=== PATIENT | female | born 1935 | race Asian ===

== ENCOUNTER 2017-06-11 04:51 | Inpatient (IN) | payer MEDICARE, MEDICAID ==
[2017-06-11] VITALS (7 sets, daily range): BP systolic 112–135; BP diastolic 66–86
[~2017-06-11] VITALS: Ht 152.4 cm; Wt 65.3 kg
--- NOTE | 2017-06-11 04:58 | Emergency Room Report ---
History of Present Illness General Chief Complaint: Dyspnea/Respdistress Source: Patient, Medical Record Present Illness HPI This is an 82-year-old [place] female [facility]. She has a past medical history diabetes, CAD, pacemaker, recent hip fracture. She presents acutely short of breath. Onset this evening. No nausea no vomiting. No fever chills. No exertional component. Allergies: Coded Allergies: No Known Allergies (Unverified , 06/11/17) Patient History Past Medical History: see triage record, old chart reviewed, DM, HTN Past Surgical History: other Pertinent Family History: none Social History: Denies: smoking Last Menstrual Period: n/a Now: No Immunizations: other Reviewed Nursing Documentation: PMH: Agreed, PSxH: Agreed Nursing Documentation-PMH Hx Diabetes: Yes - dm2 Hx Neurological Problems: No - left femur fx Review of Systems Eye: Denies: eye pain, blurred vision ENT: Denies: ear pain, nose congestion, throat swelling Respiratory: Reports: shortness of breath, Denies: cough Cardiovascular: Denies: chest pain, palpitations Gastrointestinal: Denies: abdominal pain, diarrhea, nausea, vomiting Musculoskeletal: Denies: back pain, joint pain Skin: Denies: rash Neurological: Denies: headache, numbness Endocrine: Denies: increased thirst, increased urine Hematologic/Lymphatic: Denies: easy bruising All Other Systems: negative except mentioned in HPI Physical Exam Vital Signs Date Time Temp Pulse Resp B/P (MAP) Pulse Ox O2 Delivery O2 Flow Rate FiO2 06/11/17 04:41 97.3 64 16 124/86 97 Nasal Cannula 2.0 vitals unremarkable Sp02 EP Interpretation: reviewed, normal General Appearance: well appearing, no apparent distress, alert Head: normocephalic, atraumatic Eyes: bilateral eye PERRL, bilateral eye EOMI ENT: hearing grossly normal, normal pharynx Neck: full range of motion, supple, no meningismus Respiratory: chest non-tender, lungs clear, normal breath sounds Cardiovascular #1: regular rate, rhythm, no murmur Gastrointestinal: normal bowel sounds, non tender, no mass, no organomegaly, no bruit, non-distended Musculoskeletal: back normal, normal range of motion Psychiatric: mood/affect normal Skin: warm/dry Medical Decision Making Diagnostic Impression: Primary Impression: Acute exacerbation of CHF (congestive heart failure) Qualified Codes: I50.9 - Heart failure, unspecified ER Course This patient presents with shortness of breath. Blood work show mild CHF. Because of her recent hip surgery, will get CT scan to rule out PE. Patient felt better now. She received Lasix here. Will admit for monitoring. I contacted Dr. Daly for admission. I signout the ct scan to Dr. Warner. Lab Results Impression labs with elevated BNP and Ddimer. EKG Diagnostic Results Rate: normal, other - Paced Rhythm: NSR ST Segments: no acute changes Rhythm Strip Diag. Results Rhythm Strip Time: 04:57 EP Interpretation: yes Rate: 60 Rhythm: NSR, no PVC's, other - Paced rhythm Chest X-Ray Diagnostic Results Chest X-Ray Diagnostic Results : Chest X-Ray Ordered: Yes # of Views/Limited/Complete: 1 View Indication: Shortness of Breath EP Interpretation: Yes Interpretation: no consolidation, no effusion, no pneumothorax, other - Cardiomegaly with vascular congestion Last Vital Signs Date Time Temp Pulse Resp B/P (MAP) Pulse Ox O2 Delivery O2 Flow Rate FiO2 06/11/17 04:41 97.3 64 16 124/86 97 Nasal Cannula 2.0 Status: improved Disposition: ADMITTED INPATIENT Condition: Serious DARI ALVAREZ M.D. Jun 11, 2017 04:58
[2017-06-11] MEDS ORDERED: CARDIZEM60 MG ORAL (05:02)
[2017-06-11] MEDS ORDERED: METOPROLOL TAR100 M1 ORAL (05:02)
[2017-06-11] MEDS ORDERED: DOCUSATE SODIU100 MG ORAL (05:02)
[2017-06-11] MEDS ORDERED: AMIODARONE HCL400 M1 ORAL (05:02)
[2017-06-11] MEDS ORDERED: LATANOPROST2.5 ML BOTH EYES (05:02)
[2017-06-11] MEDS ORDERED: ATORVASTATIN CA20 MG ORAL (05:02)
[2017-06-11] MEDS ORDERED: ASPIRIN EC81 MG ORAL (05:02)
[2017-06-11] MEDS ORDERED: NORCO 5-325 TA1 EACH ORAL (05:02)
[2017-06-11] MEDS ORDERED: DONEPEZIL HCL5 M2 ORAL (05:02)
[2017-06-11] MEDS ORDERED: ACETAMINOPHEN325 M1 ORAL (05:02)
[2017-06-11] MEDS ORDERED: ALENDRONATE SOD70 MG ORAL (05:02)
[2017-06-11 05:25] LABS: BASOPHILS % (AUTO) 0.5 % (0.0-2.0); EOSINOPHILS % (AUTO) 0.4 % (0.0-3.0); LYMPHOCYTES % (AUTO) 15.1 % (20.0-45.0); MEAN CORPUSCULAR HEMOGLOBIN 33.2 PG (27.0-31.0); MEAN CORPUSCULAR VOLUME 95 FL (80-99); MEAN PLATELET VOLUME 5.6 FL (6.5-10.1); MONOCYTES % (AUTO) 6.9 % (1.0-10.0); NEUTROPHILS % (AUTO) 77.1 % (45.0-75.0); PLATELET COUNT 296 K/UL (150-450); RED BLOOD COUNT 4.65 M/UL (4.20-5.40); RED CELL DISTRIBUTION WIDTH 12.5 % (11.6-14.8); WHITE BLOOD COUNT 7.5 K/UL (4.8-10.8)
[2017-06-11 05:48] LABS: ALANINE AMINOTRANSFERASE 98 U/L (12-78); ALBUMIN/GLOBULIN RATIO 0.8 (1.0-2.7); ANION GAP 7 mmol/L (5-15); ASPARTATE AMINO TRANSFERASE 57 U/L (15-37); CALCIUM 8.8 MG/DL (8.5-10.1); CARBON DIOXIDE 29 MMOL/L (21-32); CHLORIDE 105 MMOL/L (98-107); CKMB 0.5 NG/ML (0.0-3.6); CREATININE 0.6 MG/DL (0.55-1.30); SODIUM 141 MMOL/L (136-145)
[2017-06-11] MEDS ORDERED: Miralax 17gm pkt ORAL PRN (07:45)
[2017-06-11] MEDS ORDERED: Albuterol/Ipratropium 3ml neb HHN PRN (07:45)
--- NOTE | 2017-06-11 08:41 | Diagnostic Imaging Report ---
EXAM: CTA Chest (Pulmonary Angiogram) HISTORY: Acute shortness of breath with concern for pulmonary embolism. TECHNIQUE: Helical CT was performed from the lung apices through the lung base following the administration of contrast. Axial, coronal and sagittal reformatted images were created at the CT console. CT DI: 12 DLP: 492 COMPARISONS: No prior study is available for comparison. FINDINGS: Vascular Findings: There is adequate opacification of the pulmonary arteries to the sub-segmental level. There is no evidence of filling defect in the pulmonary arteries to suggest acute or chronic pulmonary embolus. Non-vascular Findings: Left chest cardiac conduction device is noted. There is moderate cardiomegaly and atherosclerotic calcification of the coronary arteries. Trace bilateral pleural effusions are noted, greater on the right with ill-defined right basilar density suspicious for atelectasis or infiltrate. The partially imaged thyroid gland is enlarged and diffusely heterogeneous, with a large, 3 cm hypodense nodule in the right thyroid lobe extending to the isthmus with dystrophic calcifications. Mild thickening of the partially imaged right adrenal gland is noted. Moderate multilevel thoracic spondylosis is noted. IMPRESSION: 1. No evidence of acute or chronic pulmonary embolus. 2. Cardiomegaly and atherosclerotic vascular disease. Trace bilateral effusions and right basilar densities which may represent atelectasis or infiltrate. Left chest cardiac conduction device. 3. Enlarged right thyroid lobe with a large, 3 cm hypodense nodule and dystrophic calcifications. Correlate with thyroid function tests and consider thyroid ultrasound. Tissue sampling may be considered. 4. Mild thickening of the right adrenal gland.
[2017-06-11] MEDS: Heparin 5000 units/ml inj SUBQ SCH ×2 (09:38→20:40)
[2017-06-11] MEDS: Amiodarone 200mg tab ORAL SCH (09:39)
[2017-06-11] MEDS: Donepezil 5mg Tab ORAL SCH (09:39)
--- NOTE | 2017-06-11 10:27 | Diagnostic Imaging Report ---
Clinical history: Acute shortness of breath. Technique: Portable AP chest radiograph was obtained. Comparison: None Findings: Lung volumes are low with probable basilar atelectasis. There is mild-moderate cardiomegaly and scattered interstitial and perihilar densities suspicious for mild pulmonary edema with trace bilateral pleural effusions. Atherosclerotic calcification of the thoracic aorta is noted. Left chest cardiac conduction device is identified. Mild degenerative changes of the visualized spine and right shoulder joint noted. Impression: Cardiomegaly and mild interstitial edema with trace bilateral pleural effusions. Low lung volumes with probable basilar atelectasis. Superimposed pneumonia is not excluded.
[2017-06-11] MEDS: dilTIAZem HCl 60mg tab ORAL SCH ×3 (12:24→23:31)
[2017-06-11] MEDS: NovoLOG Insulin Flexpen SUBQ SCH ×2 (17:05→20:41)
--- NOTE | 2017-06-11 18:25 | Cardiology Report ---
APPROVED REPORT EXAM: Two-dimensional and M-mode echocardiogram with Doppler and color Doppler. INDICATION Left ventricular function M-Mode DIMENSIONS IVSd0.8 (0.7-1.1cm)Left Atrium (MM)4.6 (1.6-4.0cm) LVDd5.3 (3.5-5.6cm)Aortic Root3.4 (2.0-3.7cm) PWd1.1 (0.7-1.1cm)Aortic Cusp Exc.1.9 (1.5-2.0cm) LVDs4.1 (2.5-4.0cm) PWs0.8 cm Normal left ventricular chamber size, systolic function and wall motion except hypokinesis of dist inferior and mid to distal anterior septum (may be related to pacing). Left ventricular ejection fraction estimated to be 45-50%. No evidence of left ventricular hypertrophy. No evidence of pericardial or pleural effusion. Mild bi-atrial enlargement by 2D. Focal aortic valve sclerosis with adequate cusp excursion. Thickened mitral valve leaflets with normal excursion. Mild mitral annulus and aortic root calcification. Pulmonic valve not well visualized. Normal tricuspid valve structure. IVC dilated at 2.5 cm and collapsible with respiration. RA pressure of 10mmHg. Probable pacemaker wire present in the right side chambers. A color flow and spectral Doppler study was performed and revealed: Mild aortic regurgitation. Moderate mitral regurgitation. Normal mitral diastolic function. Trace tricuspid regurgitation. Tricuspid systolic velocities suggests peak right ventricular systolic pressure of 36mmHg Consistent with mild pulmonary hypertension. Pulmonic regurgitation present.
--- NOTE | 2017-06-11 18:32 | Cardiology Report ---
APPROVED REPORT EKG Measurement Heart [id number] atrial pacing vent sensing
[2017-06-11] MEDS: Atorvastatin 20mg tab ORAL SCH (20:39)
[2017-06-12 00:14] VITALS: BP 113/66
[2017-06-12 04:22] VITALS: BP 131/68
[2017-06-12] MEDS: NovoLOG Insulin Flexpen SUBQ SCH ×4 (06:12→20:39)
[2017-06-12] MEDS: dilTIAZem HCl 60mg tab ORAL SCH ×3 (06:12→17:48)
[2017-06-12 07:59] VITALS: BP 122/68
[2017-06-12] MEDS: Amiodarone 200mg tab ORAL SCH (08:10)
[2017-06-12] MEDS: Donepezil 5mg Tab ORAL SCH (08:10)
[2017-06-12] MEDS: Heparin 5000 units/ml inj SUBQ SCH ×2 (08:12→20:39)
[2017-06-12 09:03] LABS: BASOPHILS % (AUTO) 0.6 % (0.0-2.0); MEAN CORPUSCULAR HEMOGLOBIN 31.7 PG (27.0-31.0); MEAN CORPUSCULAR HGB CONC 33.3 G/DL (32.0-36.0); MEAN CORPUSCULAR VOLUME 95 FL (80-99); MEAN PLATELET VOLUME 5.3 FL (6.5-10.1); MONOCYTES % (AUTO) 9.2 % (1.0-10.0); NEUTROPHILS % (AUTO) 67.2 % (45.0-75.0); PLATELET COUNT 284 K/UL (150-450); RED BLOOD COUNT 4.88 M/UL (4.20-5.40); RED CELL DISTRIBUTION WIDTH 12.5 % (11.6-14.8); WHITE BLOOD COUNT 6.7 K/UL (4.8-10.8)
[2017-06-12 09:30] LABS: ANION GAP 11 mmol/L (5-15); CALCIUM 8.9 MG/DL (8.5-10.1); CARBON DIOXIDE 28 MMOL/L (21-32); CHLORIDE 102 MMOL/L (98-107); CREATININE 0.7 MG/DL (0.55-1.30); PHOSPHORUS 4.3 MG/DL (2.5-4.9); POTASSIUM 3.5 MMOL/L (3.5-5.1); SODIUM 141 MMOL/L (136-145)
[2017-06-12 09:40] LABS: ALANINE AMINOTRANSFERASE 117 U/L (12-78); ALBUMIN/GLOBULIN RATIO 0.8 (1.0-2.7); ANION GAP 11 mmol/L (5-15); ASPARTATE AMINO TRANSFERASE 103 U/L (15-37); CALCIUM 8.7 MG/DL (8.5-10.1); CARBON DIOXIDE 28 MMOL/L (21-32); CHLORIDE 102 MMOL/L (98-107); CREATININE 0.8 MG/DL (0.55-1.30); SODIUM 141 MMOL/L (136-145); TOTAL PROTEIN 7.2 G/DL (6.4-8.2)
--- NOTE | 2017-06-12 11:03 | Diagnostic Imaging Report ---
Indication: DYSPNEA Technique: One view of the chest Comparison: 06/11/2017 Findings: Left chest pacemaker is again demonstrated. The heart is mildly enlarged. Mild generalized interstitial prominence persists, stable. Findings are unchanged Impression: Unchanged, over one day, findings as above.
--- NOTE | 2017-06-12 11:19 | Diagnostic Imaging Report ---
APPROVED REPORT CPT Code: 21271 Present Symptoms Lower Extremity Pain: Bilateral BILATERAL: Imaging reveals a patent deep venous system bilaterally. There is no evidence of thrombus within the femoral, popliteal or tibial segments. The greater saphenous veins are also within normal limits. Doppler indicates normal spontaneous flow within these segments.
[2017-06-12 11:43] VITALS: BP 109/69
--- NOTE | 2017-06-12 12:17 | History and Physical ---
History of Present Illness General Date patient seen: Jun 11, 2017 Reason for Hospitalization: Dyspnea/Respdistress Present Illness HPI 82-year-old Yoruba female with hx recent hip fracture, snf resident, diabetes, CAD, pacemaker presented to [facility] with CC of acute onset of short of breath. Onset this evening. No nausea no vomiting. No fever chills. No exertional component. Since she had a hip fracture and was on high risk for PE , she got a CT angio in ER which was negative. she received lasix which improved her symptoms. She is admitted for further work up. Allergies: Coded Allergies: No Known Allergies (Unverified , 06/11/17) Medication History Scheduled Alendronate Sodium* (Fosamax*), 70 MG ORAL ONCE A WEEK, (Reported) Amiodarone Hcl* (Amiodarone Hcl*), 400 MG ORAL EVERY 12 HOURS, (Reported) Aspirin Ec* (Aspirin Ec*), 81 MG ORAL DAILY, (Reported) Atorvastatin Calcium* (Atorvastatin Calcium*), 20 MG ORAL BEDTIME, (Reported) Diltiazem Hcl* (Cardizem*), 60 MG ORAL EVERY 6 HOURS, (Reported) Docusate Sodium* (Docusate Sodium*), 100 MG ORAL TWICE A DAY, (Reported) Donepezil Hcl* (Donepezil Hcl*), 5 MG ORAL DAILY, (Reported) Latanoprost* (Xalatan*), 1 DROP BOTH EYES BEDTIME, (Reported) Metoprolol Tartrate* (Metoprolol Tartrate*), 100 MG ORAL EVERY 12 HOURS, ( Reported) Scheduled PRN Acetaminophen* (Acetaminophen 325MG Tablet*), 650 MG ORAL Q4H PRN for Mild Pain/ Temp > 100.5, (Reported) Hydrocodone Bit/Acetaminophen 5-325* (Rosamond 5-325*), 1 TAB ORAL Q4H PRN for Moderate Breakthru Pain (5-7), (Reported) Patient History Healthcare decision maker REUBEN BANKS Resuscitation status Full Code Advanced Directive on File Past Medical/Surgical History Past Medical/Surgical History: (1) CHF (congestive heart failure) (2) Arrhythmia (3) Pacemaker (4) Diabetes mellitus Review of Systems Constitutional: Reports: no symptoms Eye: Reports: no symptoms All Other Systems: negative except mentioned in HPI Physical Exam General Appearance: WD/WN Lines, tubes and drains: peripheral HEENT: normocephalic, atraumatic Neck: non-tender, normal alignment Respiratory/Chest: chest wall non-tender, lungs clear Breasts: no masses Abdomen: normal bowel sounds, non tender Genitourinary/Rectal: normal genital exam Extremities: normal range of motion Last 24 Hour Vital Signs Date Time Temp Pulse Resp B/P (MAP) Pulse Ox O2 Delivery O2 Flow Rate FiO2 06/12/17 11:43 97.1 64 18 109/69 95 Room Air 06/12/17 11:34 65 129/74 06/12/17 08:00 60 06/12/17 07:59 96.6 60 18 122/68 94 Room Air 06/12/17 06:12 60 131/68 06/12/17 04:22 97.0 60 20 131/68 96 Nasal Cannula 2.0 06/12/17 04:00 60 06/12/17 00:14 97.7 60 20 113/66 95 Nasal Cannula 2.0 06/12/17 00:00 61 06/11/17 23:31 61 132/73 06/11/17 20:03 97.7 61 20 132/73 96 Nasal Cannula 2.0 06/11/17 20:00 60 06/11/17 17:08 62 135/78 06/11/17 16:00 97.8 60 20 135/78 97 Nasal Cannula 2.0 06/11/17 16:00 62 06/11/17 13:45 60 06/11/17 13:40 97.0 67 20 112/77 96 Nasal Cannula 2.0 06/11/17 13:25 97.3 60 20 130/81 98 Nasal Cannula 2.0 06/11/17 13:20 60 20 130/81 98 Nasal Cannula 2.0 06/11/17 12:24 60 128/66 Intake and Output 06/12/17 06/13/17 19:00 07:00 Intake Total 240 ml Output Total 500 ml Balance -260 ml Intake Oral 240 ml Output Urine Total 500 ml Laboratory Tests Test 06/11/17 13:00 06/12/17 08:05 Troponin I 0.027 ng/mL (0.000-0.056) 0.019 ng/mL (0.000-0.056) White Blood Count 6.7 K/UL (4.8-10.8) Red Blood Count 4.88 M/UL (4.20-5.40) Hemoglobin 15.5 G/DL (12.0-16.0) Hematocrit 46.6 % (37.0-47.0) Mean Corpuscular Volume 95 FL (80-99) Mean Corpuscular Hemoglobin 31.7 PG (27.0-31.0) H Mean Corpuscular Hemoglobin Concent 33.3 G/DL (32.0-36.0) Red Cell Distribution Width 12.5 % (11.6-14.8) Platelet Count 284 K/UL (150-450) Mean Platelet Volume 5.3 FL (6.5-10.1) L Neutrophils (%) (Auto) 67.2 % (45.0-75.0) Lymphocytes (%) (Auto) 21.0 % (20.0-45.0) Monocytes (%) (Auto) 9.2 % (1.0-10.0) Eosinophils (%) (Auto) 2.0 % (0.0-3.0) Basophils (%) (Auto) 0.6 % (0.0-2.0) Sodium Level 141 MMOL/L (136-145) Potassium Level 3.0 MMOL/L (3.5-5.1) L Chloride Level 102 MMOL/L (98-107) Carbon Dioxide Level 28 MMOL/L (21-32) Anion Gap 11 mmol/L (5-15) Blood Urea Nitrogen 13 mg/dL (7-18) Creatinine 0.8 MG/DL (0.55-1.30) Estimat Glomerular Filtration Rate mL/min (>60) Glucose Level 178 MG/DL (74-106) H Calcium Level 8.7 MG/DL (8.5-10.1) Phosphorus Level 4.3 MG/DL (2.5-4.9) Total Bilirubin 0.8 MG/DL (0.2-1.0) Aspartate Amino Transf (AST/SGOT) 103 U/L (15-37) H Alanine Aminotransferase (ALT/SGPT) 117 U/L (12-78) H Alkaline Phosphatase 126 U/L (46-116) H Pro-B-Type Natriuretic Peptide 522 pg/mL (0-125) H Total Protein 7.2 G/DL (6.4-8.2) Albumin 3.3 G/DL (3.4-5.0) L Globulin 3.9 g/dL Albumin/Globulin Ratio 0.8 (1.0-2.7) L Height (Feet): 5 Height (Inches): 0.00 Weight (Pounds): 145 Medications Current Medications Medications (Trade) Dose Ordered Sig/Donte Route PRN Reason Start Time Stop Time Status Last Admin Dose Admin Acetaminophen (Tylenol) 650 mg Q4H PRN ORAL T>100.5 06/11/17 07:45 07/11/17 07:44 Albuterol/ Ipratropium (Albuterol/ Ipratropium) 3 ml Q4H PRN HHN Shortness of Breath 06/11/17 07:45 06/16/17 07:44 Amiodarone HCl (Cordarone) 200 mg DAILY ORAL 06/11/17 09:00 07/11/17 08:59 06/12/17 08:10 Atorvastatin Calcium (Lipitor) 20 mg BEDTIME ORAL 06/11/17 21:00 07/11/17 20:59 06/11/17 20:39 Dextrose (Dextrose 50%) STAT PRN IV Hypoglycemia 06/11/17 07:45 07/11/17 07:44 Dextrose (Dextrose 50%) STAT PRN IV Hypoglycemia 06/11/17 16:30 07/11/17 16:29 Diltiazem HCl (Cardizem) 60 mg EVERY 6 HOURS ORAL 06/11/17 12:00 07/11/17 11:59 06/12/17 11:34 Donepezil HCl (Aricept) 5 mg DAILY ORAL 06/11/17 09:00 07/11/17 08:59 06/12/17 08:10 Furosemide (Lasix) 40 mg EVERY 8 HOURS IV 06/11/17 14:00 07/11/17 13:59 06/12/17 06:12 Heparin Sodium (Porcine) (Heparin 5000 units/ml) 5,000 units EVERY 12 HOURS SUBQ 06/11/17 09:00 07/11/17 08:59 06/12/17 08:12 Insulin Aspart (NovoLOG) BEFORE MEALS AND HS SUBQ 06/11/17 16:30 07/11/17 16:29 06/11/17 20:41 Ondansetron HCl (Zofran) 4 mg Q6H PRN IVP Nausea & Vomiting 06/11/17 07:45 07/11/17 07:44 Polyethylene Glycol (Miralax) 17 gm DAILYPRN PRN ORAL Constipation 06/11/17 07:45 07/11/17 07:44 Temazepam (Restoril) 15 mg HSPRN PRN ORAL Insomnia 06/11/17 21:00 06/18/17 20:59 Assessment/Plan Problem List: (1) Acute respiratory failure ICD Codes: J96.00 - Acute respiratory failure, unspecified whether with hypoxia or hypercapnia SNOMED: 55499711 (2) Acute exacerbation of CHF (congestive heart failure) ICD Codes: I50.9 - Heart failure, unspecified SNOMED: 16154601 Qualifiers: Qualified Codes: I50.9 - Heart failure, unspecified (3) Arrhythmia ICD Codes: I49.9 - Cardiac arrhythmia, unspecified SNOMED: 021300593 (4) CHF (congestive heart failure) ICD Codes: I50.9 - Heart failure, unspecified SNOMED: 30465425 (5) Diabetes mellitus ICD Codes: E11.9 - Type 2 diabetes mellitus without complications SNOMED: 04594485 (6) Pacemaker ICD Codes: Z95.0 - Presence of cardiac pacemaker SNOMED: 985238439, 844038118 Assessment/Plan diuretics echo cardiology evaluation sliding scale, insulin coverage. RITA CORDERO Jun 12, 2017 12:17
--- NOTE | 2017-06-12 12:19 | Pulmonology Progress Note ---
Assessment/Plan Problems: (1) Acute respiratory failure (2) Acute exacerbation of CHF (congestive heart failure) (3) Arrhythmia (4) CHF (congestive heart failure) (5) Diabetes mellitus (6) Pacemaker Assessment/Plan K supplement echo reviewed optimized cardiac meds continue diuretics Subjective ROS Limited/Unobtainable: No Constitutional: Reports: no symptoms HEENT: Repors: no symptoms Allergies: Coded Allergies: No Known Allergies (Unverified , 06/11/17) Objective Last 24 Hour Vital Signs Date Time Temp Pulse Resp B/P (MAP) Pulse Ox O2 Delivery O2 Flow Rate FiO2 06/12/17 11:43 97.1 64 18 109/69 95 Room Air 06/12/17 11:34 65 129/74 06/12/17 08:00 60 06/12/17 07:59 96.6 60 18 122/68 94 Room Air 06/12/17 06:12 60 131/68 06/12/17 04:22 97.0 60 20 131/68 96 Nasal Cannula 2.0 06/12/17 04:00 60 06/12/17 00:14 97.7 60 20 113/66 95 Nasal Cannula 2.0 06/12/17 00:00 61 06/11/17 23:31 61 132/73 06/11/17 20:03 97.7 61 20 132/73 96 Nasal Cannula 2.0 06/11/17 20:00 60 06/11/17 17:08 62 135/78 06/11/17 16:00 97.8 60 20 135/78 97 Nasal Cannula 2.0 06/11/17 16:00 62 06/11/17 13:45 60 06/11/17 13:40 97.0 67 20 112/77 96 Nasal Cannula 2.0 06/11/17 13:25 97.3 60 20 130/81 98 Nasal Cannula 2.0 06/11/17 13:20 60 20 130/81 98 Nasal Cannula 2.0 06/11/17 12:24 60 128/66 Intake and Output 06/12/17 06/13/17 19:00 07:00 Intake Total 240 ml Output Total 500 ml Balance -260 ml Intake Oral 240 ml Output Urine Total 500 ml General Appearance: WD/WN HEENT: normocephalic, atraumatic Respiratory/Chest: chest wall non-tender, lungs clear Breasts: no masses Cardiovascular: normal peripheral pulses Abdomen: normal bowel sounds, soft, non tender Genitourinary: normal external genitalia Extremities: no cyanosis 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 Lymphatic: no neck adenopathy Laboratory Tests 06/11/17 13:00: Troponin I 0.027 06/12/17 08:05: Troponin I 0.019, White Blood Count 6.7, Red Blood Count 4.88, Hemoglobin 15.5, Hematocrit 46.6, Mean Corpuscular Volume 95, Mean Corpuscular Hemoglobin 31.7H, Mean Corpuscular Hemoglobin Concent 33.3, Red Cell Distribution Width 12.5, Platelet Count 284, Mean Platelet Volume 5.3L, Neutrophils (%) (Auto) 67.2, Lymphocytes (%) (Auto) 21.0, Monocytes (%) (Auto) 9.2, Eosinophils (%) (Auto) 2.0, Basophils (%) (Auto) 0.6, Sodium Level 141, Potassium Level 3.0L, Chloride Level 102, Carbon Dioxide Level 28, Anion Gap 11, Blood Urea Nitrogen 13, Creatinine 0.8, Estimat Glomerular Filtration Rate , Glucose Level 178H, Calcium Level 8.7, Phosphorus Level 4.3, Total Bilirubin 0.8, Aspartate Amino Transf (AST/SGOT) 103H, Alanine Aminotransferase (ALT/SGPT) 117H, Alkaline Phosphatase 126H, Pro-B-Type Natriuretic Peptide 522H, Total Protein 7.2, Albumin 3.3L, Globulin 3.9, Albumin/Globulin Ratio 0.8L Current Medications Medications (Trade) Dose Ordered Sig/Donte Route PRN Reason Start Time Stop Time Status Last Admin Dose Admin Acetaminophen (Tylenol) 650 mg Q4H PRN ORAL T>100.5 06/11/17 07:45 07/11/17 07:44 Albuterol/ Ipratropium (Albuterol/ Ipratropium) 3 ml Q4H PRN HHN Shortness of Breath 06/11/17 07:45 06/16/17 07:44 Amiodarone HCl (Cordarone) 200 mg DAILY ORAL 06/11/17 09:00 07/11/17 08:59 06/12/17 08:10 Atorvastatin Calcium (Lipitor) 20 mg BEDTIME ORAL 06/11/17 21:00 07/11/17 20:59 06/11/17 20:39 Dextrose (Dextrose 50%) STAT PRN IV Hypoglycemia 06/11/17 07:45 07/11/17 07:44 Dextrose (Dextrose 50%) STAT PRN IV Hypoglycemia 06/11/17 16:30 07/11/17 16:29 Diltiazem HCl (Cardizem) 60 mg EVERY 6 HOURS ORAL 06/11/17 12:00 07/11/17 11:59 06/12/17 11:34 Donepezil HCl (Aricept) 5 mg DAILY ORAL 06/11/17 09:00 07/11/17 08:59 06/12/17 08:10 Furosemide (Lasix) 40 mg EVERY 8 HOURS IV 06/11/17 14:00 07/11/17 13:59 06/12/17 06:12 Heparin Sodium (Porcine) (Heparin 5000 units/ml) 5,000 units EVERY 12 HOURS SUBQ 06/11/17 09:00 07/11/17 08:59 06/12/17 08:12 Insulin Aspart (NovoLOG) BEFORE MEALS AND HS SUBQ 06/11/17 16:30 07/11/17 16:29 06/11/17 20:41 Ondansetron HCl (Zofran) 4 mg Q6H PRN IVP Nausea & Vomiting 06/11/17 07:45 07/11/17 07:44 Polyethylene Glycol (Miralax) 17 gm DAILYPRN PRN ORAL Constipation 06/11/17 07:45 07/11/17 07:44 Temazepam (Restoril) 15 mg HSPRN PRN ORAL Insomnia 06/11/17 21:00 06/18/17 20:59 RITA CORDERO Jun 12, 2017 12:19
[2017-06-12 15:33] VITALS: BP 125/77
--- NOTE | 2017-06-12 18:37 | Cardiology Progress Note ---
Assessment/Plan Assessment/Plan better will check orthosttic vital keep on amiod check tsh on amiod [id number] Objective Last 24 Hour Vital Signs Date Time Temp Pulse Resp B/P (MAP) Pulse Ox O2 Delivery O2 Flow Rate FiO2 06/12/17 17:48 59 117/69 06/12/17 16:00 61 06/12/17 15:33 97.1 60 18 125/77 100 Room Air 06/12/17 12:00 60 06/12/17 11:43 97.1 64 18 109/69 95 Room Air 06/12/17 11:34 65 129/74 06/12/17 08:00 60 06/12/17 07:59 96.6 60 18 122/68 94 Room Air 06/12/17 06:12 60 131/68 06/12/17 04:22 97.0 60 20 131/68 96 Nasal Cannula 2.0 06/12/17 04:00 60 06/12/17 00:14 97.7 60 20 113/66 95 Nasal Cannula 2.0 06/12/17 00:00 61 06/11/17 23:31 61 132/73 06/11/17 20:03 97.7 61 20 132/73 96 Nasal Cannula 2.0 06/11/17 20:00 60 Intake and Output 06/12/17 06/13/17 19:00 07:00 Intake Total 720 ml Output Total 800 ml Balance -80 ml Intake Oral 720 ml Output Urine Total 800 ml Laboratory Tests Test 06/12/17 08:05 White Blood Count 6.7 K/UL (4.8-10.8) Red Blood Count 4.88 M/UL (4.20-5.40) Hemoglobin 15.5 G/DL (12.0-16.0) Hematocrit 46.6 % (37.0-47.0) Mean Corpuscular Volume 95 FL (80-99) Mean Corpuscular Hemoglobin 31.7 PG (27.0-31.0) H Mean Corpuscular Hemoglobin Concent 33.3 G/DL (32.0-36.0) Red Cell Distribution Width 12.5 % (11.6-14.8) Platelet Count 284 K/UL (150-450) Mean Platelet Volume 5.3 FL (6.5-10.1) L Neutrophils (%) (Auto) 67.2 % (45.0-75.0) Lymphocytes (%) (Auto) 21.0 % (20.0-45.0) Monocytes (%) (Auto) 9.2 % (1.0-10.0) Eosinophils (%) (Auto) 2.0 % (0.0-3.0) Basophils (%) (Auto) 0.6 % (0.0-2.0) Sodium Level 141 MMOL/L (136-145) Potassium Level 3.0 MMOL/L (3.5-5.1) L Chloride Level 102 MMOL/L (98-107) Carbon Dioxide Level 28 MMOL/L (21-32) Anion Gap 11 mmol/L (5-15) Blood Urea Nitrogen 13 mg/dL (7-18) Creatinine 0.8 MG/DL (0.55-1.30) Estimat Glomerular Filtration Rate mL/min (>60) Glucose Level 178 MG/DL (74-106) H Calcium Level 8.7 MG/DL (8.5-10.1) Phosphorus Level 4.3 MG/DL (2.5-4.9) Total Bilirubin 0.8 MG/DL (0.2-1.0) Aspartate Amino Transf (AST/SGOT) 103 U/L (15-37) H Alanine Aminotransferase (ALT/SGPT) 117 U/L (12-78) H Alkaline Phosphatase 126 U/L (46-116) H Troponin I 0.019 ng/mL (0.000-0.056) Pro-B-Type Natriuretic Peptide 522 pg/mL (0-125) H Total Protein 7.2 G/DL (6.4-8.2) Albumin 3.3 G/DL (3.4-5.0) L Globulin 3.9 g/dL Albumin/Globulin Ratio 0.8 (1.0-2.7) L CHEO REESE Jun 12, 2017 18:37
[2017-06-12 20:00] VITALS: BP 135/74
[2017-06-12] MEDS: Atorvastatin 20mg tab ORAL SCH (20:38)
[2017-06-13] VITALS: BP 118/69
[2017-06-13] MEDS: dilTIAZem HCl 60mg tab ORAL SCH ×4 (00:02→18:22)
[2017-06-13 04:00] VITALS: BP 125/72
[2017-06-13] MEDS: NovoLOG Insulin Flexpen SUBQ SCH ×4 (06:21→20:09)
[2017-06-13 08:00] VITALS: BP 119/69
--- NOTE | 2017-06-13 08:00 | Consultation ---
DATE OF CONSULTATION: 06/12/2017 CARDIAC CONSULTATION CONSULTING PHYSICIAN: Britton Tapia M.D. REFERRING PHYSICIAN: Heidi Daly M.D. REASON FOR REFERRAL: Congestive heart failure. HISTORY OF PRESENT ILLNESS: This is an elderly female of Amhar[place] descent. The patient apparently came in to the hospital because of shortness of breath. No fevers or chills. I can understand the patient is unfortunately not a very good historian. She is a resident of a convalescent facility. There are no chief service dispatcher run sheets available. It is not very clear to me what the onset of issues have been and how long this has been going on. Nevertheless, she was brought to the emergency room because of those issues and has been admitted to the hospital for possible congestive heart failure exacerbation. She has some records from her prior hospitalization. 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 device. She reportedly has a history of coronary artery disease and has had percutaneous coronary intervention of unknown nature on prior occasions. In February 2017, she was hospitalized at [facility] for tachycardic episodes and she was started on amiodarone therapy and has been on amiodarone since then. PAST MEDICAL HISTORY: Positive for tachy-nick syndrome, permanent pacemaker implantation in 2011, diabetes mellitus, hypertension, coronary artery disease, PCI, osteoporosis, paroxysmal episodes of atrial fibrillation, and hip fracture, status post operative repair. MEDICATIONS: Amiodarone. List is provided. ALLERGIES: None. REVIEW OF SYSTEMS: Really unable to obtain. PHYSICAL EXAMINATION: GENERAL: Physical examination shows her to be elderly female, in no respiratory distress. She is actually lying down flat approximately 10 degrees head of bed elevation with one pillow. NECK: Supple. No jugular venous distention. LUNGS: Clear to auscultation and percussion. CARDIAC: S1 is normal. S2 is normal. Regular rate and rhythm. No RV lift, heaves, thrills, or gallops noted. ABDOMEN: Soft and nontender. Positive bowel sounds. EXTREMITIES: There is no clubbing, cyanosis, nor is there any edema. NEUROLOGICAL: She is awake, alert, responsive, and does not appear to be in any respiratory distress. LABORATORY AND DIAGNOSTIC DATA: EKG shows atrial paced, ventricular sensed rhythm on several recorded strips, at times ventricular pacing as well. An EKG also shows intermittent atrial sensed and paced AV blocks with ventricular pacing. Venous duplex of the lower extremities shows no evidence of thrombus. She had an echocardiogram, which showed normal systolic function, except for hypokinesia in distal inferior and mid to distal anterior septum, which may be related to pacing. Ejection fraction estimated 45% to 50%. Biatrial enlargement was noted. Moderate mitral regurgitation, mild aortic regurgitation, and trace tricuspid regurgitation was noted. PA pressure of 36 was documented. Other blood tests show white count of 6.7, hemoglobin 15.5, and platelet count of 284. Sodium is 141, potassium 3.0, chloride 102, bicarbonate 28, BUN 13, creatinine 0.8, and glucose of 178. AST of 103, ALT of 117, and alkaline phosphatase of 126. Three sets of cardiac enzymes were negative. ProBNP was 973 at the time of admission, 522. Coagulations, D-dimer was 1.87. A chest x-ray performed in the emergency room shows cardiomegaly with mild interstitial edema and trace bilateral pleural effusions. A CT angio of the chest was performed. It shows no evidence of pulmonary embolism. Cardiomegaly, calcification of the coronary arteries, and bilateral pleural effusions are noted. Thyroid gland, homogenous and enlarged. ASSESSMENT AND PLAN: 1. Possible congestive heart failure. 2. 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 3. History of coronary artery disease with a history of percutaneous coronary intervention. 4. Cardiac pacemaker in situ. 5. [id number]-[id number] valvular deficiencies. Dr. Daly, this patient was seen in cardiac consultation. She appears quite uncomfortable at the present time. Her blood pressure is in a good range. Her heart rate is paced, intermittently atrially and/or ventricularly. She has no evidence of myonecrosis. CT pulmonary angiogram did not show any evidence of pulmonary embolism. She does not have any evidence of deep venous thrombosis. We would continue on amiodarone therapy and would consider discontinuation of diuretics or change to p.o. soon as the patient did have some orthostatic changes or dizziness when I sat her up to examine her, and a set of orthostatic vital signs should be ordered for tomorrow morning to make sure she is not volume depleted. I will discontinue the IV Lasix until those orthostatic vitals are performed. One set will be performed this evening as well. Britton Tapia M.D. DR: JORDAN JOB#: [id number] CC:
[2017-06-13] MEDS: Amiodarone 200mg tab ORAL SCH (08:24)
[2017-06-13] MEDS: Donepezil 5mg Tab ORAL SCH (08:25)
[2017-06-13] MEDS: Heparin 5000 units/ml inj SUBQ SCH ×2 (08:25→20:09)
[2017-06-13 12:00] VITALS: BP 137/76
--- NOTE | 2017-06-13 12:44 | Pulmonology Progress Note ---
Assessment/Plan Problems: (1) Acute respiratory failure (2) Acute exacerbation of CHF (congestive heart failure) (3) Arrhythmia (4) CHF (congestive heart failure) (5) Diabetes mellitus (6) Pacemaker Assessment/Plan K supplement echo reviewed optimized cardiac meds continue diuretics d/c back to skilled nursing when OK with research physiologist. Subjective ROS Limited/Unobtainable: No Constitutional: Reports: no symptoms HEENT: Repors: no symptoms Respiratory: Reports: no symptoms Allergies: Coded Allergies: No Known Allergies (Unverified , 06/11/17) Objective Last 24 Hour Vital Signs Date Time Temp Pulse Resp B/P (MAP) Pulse Ox O2 Delivery O2 Flow Rate FiO2 06/13/17 12:06 60 137/76 06/13/17 09:00 59 60 60 06/13/17 08:00 97.5 60 20 119/69 96 Room Air 06/13/17 08:00 60 06/13/17 06:20 60 131/70 06/13/17 04:00 97.0 60 18 125/72 94 Room Air 06/13/17 04:00 61 06/13/17 00:02 60 128/68 06/13/17 00:00 60 06/13/17 00:00 97.9 60 18 118/69 94 Room Air 06/12/17 20:00 97.3 60 18 135/74 94 Room Air 06/12/17 20:00 60 60 60 06/12/17 20:00 60 06/12/17 17:48 59 117/69 06/12/17 16:00 61 06/12/17 15:33 97.1 60 18 125/77 100 Room Air General Appearance: WD/WN HEENT: normocephalic, atraumatic, anicteric Respiratory/Chest: chest wall non-tender, lungs clear Breasts: no masses Cardiovascular: normal rate Abdomen: normal bowel sounds, soft, non tender Genitourinary: normal external genitalia Extremities: no clubbing Skin: no ulcers Neurologic/Psychiatric: formulator compounder II-XII grossly normal Microbiology Date/Time Source Procedure Growth Status 06/11/17 06:30 Nasal Nares MRSA Culture - Final NO METHICILLIN RESISTANT STAPH AUREUS... Complete 06/11/17 06:30 Rectum VRE Culture - Final Enterococcus Faecalis - Vre Complete Laboratory Tests 06/13/17 06:40: Troponin I 0.022 Current Medications Medications (Trade) Dose Ordered Sig/Donte Route PRN Reason Start Time Stop Time Status Last Admin Dose Admin Acetaminophen (Tylenol) 650 mg Q4H PRN ORAL T>100.5 06/11/17 07:45 07/11/17 07:44 Albuterol/ Ipratropium (Albuterol/ Ipratropium) 3 ml Q4H PRN HHN Shortness of Breath 06/11/17 07:45 06/16/17 07:44 Amiodarone HCl (Cordarone) 200 mg DAILY ORAL 06/11/17 09:00 07/11/17 08:59 06/13/17 08:24 Atorvastatin Calcium (Lipitor) 20 mg BEDTIME ORAL 06/11/17 21:00 07/11/17 20:59 06/12/17 20:38 Dextrose (Dextrose 50%) STAT PRN IV Hypoglycemia 06/11/17 07:45 07/11/17 07:44 Dextrose (Dextrose 50%) STAT PRN IV Hypoglycemia 06/11/17 16:30 07/11/17 16:29 Diltiazem HCl (Cardizem) 60 mg EVERY 6 HOURS ORAL 06/11/17 12:00 07/11/17 11:59 06/13/17 12:06 Donepezil HCl (Aricept) 5 mg DAILY ORAL 06/11/17 09:00 07/11/17 08:59 06/13/17 08:25 Heparin Sodium (Porcine) (Heparin 5000 units/ml) 5,000 units EVERY 12 HOURS SUBQ 06/11/17 09:00 07/11/17 08:59 06/13/17 08:25 Insulin Aspart (NovoLOG) BEFORE MEALS AND HS SUBQ 06/11/17 16:30 07/11/17 16:29 06/12/17 20:39 Ondansetron HCl (Zofran) 4 mg Q6H PRN IVP Nausea & Vomiting 06/11/17 07:45 07/11/17 07:44 Polyethylene Glycol (Miralax) 17 gm DAILYPRN PRN ORAL Constipation 06/11/17 07:45 07/11/17 07:44 Potassium Chloride (K-Dur) 40 meq DAILY ORAL 06/12/17 13:00 07/12/17 12:59 06/13/17 08:25 Temazepam (Restoril) 15 mg HSPRN PRN ORAL Insomnia 06/11/17 21:00 06/18/17 20:59 RITA CORDERO Jun 13, 2017 12:44
--- NOTE | 2017-06-13 14:21 | Cardiology Progress Note ---
Assessment/Plan Assessment/Plan 1. Possible congestive heart failure. 2. 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 3. History of coronary artery disease with a history of percutaneous coronary intervention. 4. Cardiac pacemaker in situ. 5. Vtba-pa-mmmaxyho valvular deficiencies. 6. mild lv systolic dysfucntion seems better had been experiencing sob pt now seem resolved not orthostatic today tele reviwed sophiaf lasix 20 mg dialy as outpt amiodarone dose need to be decreased to 2300 mg dialy tsh bmp Subjective Cardiovascular: Denies: chest pain, lightheadedness, palpitations Respiratory: Denies: shortness of breath Gastrointestinal/Abdominal: Denies: abdominal pain Genitourinary: Denies: burning Subjective info via chinese staff on the floor Objective Last 24 Hour Vital Signs Date Time Temp Pulse Resp B/P (MAP) Pulse Ox O2 Delivery O2 Flow Rate FiO2 06/13/17 12:06 60 137/76 06/13/17 09:00 59 60 60 06/13/17 08:00 97.5 60 20 119/69 96 Room Air 06/13/17 08:00 60 06/13/17 06:20 60 131/70 06/13/17 04:00 97.0 60 18 125/72 94 Room Air 06/13/17 04:00 61 06/13/17 00:02 60 128/68 06/13/17 00:00 60 06/13/17 00:00 97.9 60 18 118/69 94 Room Air 06/12/17 20:00 97.3 60 18 135/74 94 Room Air 06/12/17 20:00 60 60 60 06/12/17 20:00 60 06/12/17 17:48 59 117/69 06/12/17 16:00 61 06/12/17 15:33 97.1 60 18 125/77 100 Room Air General Appearance: no apparent distress Neck: supple Cardiovascular: normal rate, regular rhythm Respiratory/Chest: lungs clear, normal breath sounds Abdomen: normal bowel sounds, non tender, soft Extremities: no swelling Laboratory Tests Test 06/13/17 06:40 Troponin I 0.022 ng/mL (0.000-0.056) Microbiology Date/Time Source Procedure Growth Status 06/11/17 06:30 Nasal Nares MRSA Culture - Final NO METHICILLIN RESISTANT STAPH AUREUS... Complete 06/11/17 06:30 Rectum VRE Culture - Final Enterococcus Faecalis - Vre Complete CHEO REESE Jun 13, 2017 14:21
[2017-06-13 15:33] LABS: ANION GAP 10 mmol/L (5-15); CALCIUM 9.2 MG/DL (8.5-10.1); CARBON DIOXIDE 25 MMOL/L (21-32); CHLORIDE 102 MMOL/L (98-107); CREATININE 0.7 MG/DL (0.55-1.30); POTASSIUM 4.1 MMOL/L (3.5-5.1); SODIUM 137 MMOL/L (136-145); THYROID STIMULATING HORMONE 1.152 uiU/mL (0.360-3.740)
[2017-06-13 16:00] VITALS: BP 119/69
[2017-06-13] MEDS ORDERED: POTASSIUM CHLO20 ME1 ORAL (16:26)
[2017-06-13] MEDS ORDERED: PACERONE200 MG ORAL (16:26)
[2017-06-13] MEDS ORDERED: FUROSEMIDE20 M1 ORAL (16:26)
[2017-06-13 18:22] VITALS: BP 131/61
[2017-06-13] MEDS: Atorvastatin 20mg tab ORAL SCH (20:08)
--- NOTE | 2017-06-15 11:18 | Discharge Summary ---
Discharge Summary Hospital Course Date of Admission Jun 11, 2017 at 06:45 Date of Discharge Jun 13, 2017 at 21:00 Admitting Diagnosis CHF exacerbation HPI Adrian Clement is a 82 year old female who was admitted on Jun 11, 2017 at 06:45 for Congestive Heart Failure Exacerbation Hospital Course [id number] Discharge Discharge Disposition Patient was discharged to SNF/Subacute Facility(03) Discharge Diagnoses: Juli Lea NP Jun 15, 2017 11:18
--- NOTE | 2017-06-15 23:15 | Discharge Summary 2 SIG ---
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 BRIEF HOSPITAL COURSE: The patient is an 82-year-old Mong[place]ian female with recent hip fracture, who resides in assisted. She has a history of diabetes mellitus, coronary artery disease, and pacemaker. She presented to [facility] ER for complaints of acute onset of shortness of breath. There was no fever, no chills. No nausea or vomiting. On evaluation at ED, blood work showed mild CHF due to recent hip surgery. CAT scan of the chest and thorax was done, result was without evidence of pulmonary embolus. There were trace bilateral effusions and right basilar density. BNP was 973. EKG showed a paced rhythm. Chest x-ray showed cardiomegaly with vascular congestion. She was given Lasix and was admitted to telemetry for further evaluation. From review of records, she was hospitalized at [facility] with diagnosis of paroxysmal atrial fibrillation and tachy-nick syndrome, for which she received a permanent pacemaker implantation in 2011 using [employer] device. She was on amiodarone therapy. She was admitted to telemetry and rhythm strips showed ventricular pacing. EKG showed intermittent atrial sensed and paced AV blocks with ventricular pacing. She had an echocardiogram, which showed normal systolic function except for hypokinesia in the distal inferior and mid to distal anterior septum, which may be related to pacing, ejection fraction was 45% to 50%. There was biatrial enlargement noted, moderate mitral regurgitation, mild aortic regurgitation, and trace tricuspid regurgitation. PA pressure was 36. Cardiac enzymes were negative. She was continued on amiodarone therapy. IV Lasix was discontinued and was switched to p.o. She had low potassium and potassium supplements were given. The patient was breathing better and nonorthostatic. She was eventually discharged back to SNF to continue Lasix 20 mg daily and amiodarone 200 mg daily with potassium supplements 40 mEq. FINAL DIAGNOSES: 1. Possible acute diastolic congestive heart failure. 2. Tachy-nick syndrome, status post [employer] permanent pacemaker implantation. 3. Coronary artery disease with prior percutaneous coronary intervention. 4. Cardiac pacemaker in situ. 5. Mild to moderate valvular deficiencies. 6. Mild left ventricular systolic dysfunction. 7. Diabetes mellitus. DISPOSITION: The patient was discharged to [facility]. DISCHARGE MEDICATIONS: Refer to medication list. Heidi Daly M.D. I have been assigned to dictate discharge summary on this account and I was not involved in the patient's management. Juli Lea N.P. DR: LEANA JOB#: [id number] CC: [email or web address]
== END 2017-06-13 21:00 | DRG 291 ==
LOC: EDBD 04:51 → EMR 05:20 → 2E 06:45 → EDBEDREQ 12:30
DX: I50.31 Acute diastolic (congestive) heart failure (principal); J96.00 Acute respiratory failure, unspecified whether with hypoxia or hypercapnia; E11.9 Type 2 diabetes mellitus without complications; I34.0 Nonrheumatic mitral (valve) insufficiency; I25.10 Atherosclerotic heart disease of native coronary artery without angina pectoris; Z95.0 Presence of cardiac pacemaker; I35.1 Nonrheumatic aortic (valve) insufficiency; I48.0 Paroxysmal atrial fibrillation; Z98.61 Coronary angioplasty status; M81.0 Age-related osteoporosis without current pathological fracture
CPT/HCPCS: 36415; 71010; 71275; 80048; 80053; 80069; 82550; 82553; 82962; 83880; 84443; 84484; 85025; 85379; 87081; 93005; 93306; 93970; 99285; J1815; J8499